=== PATIENT | female | born 1960 | race Caucasian/White ===

== ENCOUNTER 2019-05-24 09:49 | Emergency (ER) | payer OTHER ==
[~2019-05-24] VITALS: Ht 160 cm; Wt 69.4 kg
[~2019-05-24 09:49] MED LIST: COQ-10100 MG PO; DAILY MULTIPLE1 EACH PO; GINGER ROOT550 MG PO; IBUPROFEN600 MG PO; PERCOCET 7.5-31 EACH PO; VITAMIN B122500 MCG PO; VITAMIN C500 M1 PO
== END 2019-05-24 10:50 | disposition home or self-care (01) ==
LOC: ED 09:49
DX: B34.9 Viral infection, unspecified (principal)
CPT/HCPCS: 99283

== ENCOUNTER 2021-04-15 23:06 | Emergency (ER) | payer OTHER ==
[~2021-04-15] VITALS: Ht 160 cm; Wt 66.9 kg
[2021-04-15] MEDS ORDERED: FISH OIL 1,0001 EAC2 NG (23:29)
[2021-04-16] MEDS ORDERED: METRONIDAZOLE500 MG PO (02:14)
[2021-04-16] MEDS ORDERED: CIPRO500 MG PO (02:14)
[2021-04-16] MEDS ORDERED: HYDROCODON-ACE1 EA10 PO (02:14)
[2021-04-16] MEDS ORDERED: ONDANSETRON ODT8 MG PO (02:14)
== END 2021-04-16 02:32 | disposition home or self-care (01) ==
LOC: ED 23:06
DX: K57.32 Diverticulitis of large intestine without perforation or abscess without bleeding (principal); M48.56XA Collapsed vertebra, not elsewhere classified, lumbar region, initial encounter for fracture; Z91.030 Bee allergy status; Z79.899 Other long term (current) drug therapy
CPT/HCPCS: 36415; 74177; 80053; 81001; 83690; 85025; 96374; 99284-25; A9270; J2270; J7030; Q9967

== ENCOUNTER 2022-03-28 06:25 | Day surgery (SDC) | payer BC ==
[~2022-03-28] VITALS: Ht 160 cm; Wt 64.5 kg
[~2022-03-28 06:25] MED LIST changes: +CIPRO500 MG PO; +DIVIGEL1 GM TD; +FISH OIL 1,0001 EAC2 NG; +HYDROCHLOROTH12.5 MG PO; +HYDROCODON-ACE1 EA10 PO; +METRONIDAZOLE500 MG PO; +ONDANSETRON ODT8 MG PO; +VITAMIN C WITH500 MG PO; +VITAMIN D310 MC1 PO
--- NOTE | 2022-03-28 09:57 | OR ---
[facility] [address], [place] [address] Signed DATE OF OPERATION: 03/28/2022 SURGEON: Jacobo Stratton MD PREOPERATIVE DIAGNOSES: 1. Maternal great grandmother with breast cancer and possibly colon cancer. 2. Maternal grandmother had colon cancer in her 50s. 3. Mother with colon cancer at age 51 and still alive at age 85. 4. Maternal cousin with colon cancer. 5. Brother with colon polyps. 6. Internal and external hemorrhoids. 7. Diverticulosis. POSTOPERATIVE DIAGNOSES: 1. Tortuous sigmoid colon. 2. Moderate sigmoid diverticulosis. PROCEDURE: Colonoscopy without biopsy. ESTIMATED BLOOD LOSS: None. INDICATIONS: Lucy is a 62-year-old female, who asked to see me for a followup colonoscopy. She has a long family history of colon cancer and polyps as listed above. She started her colonoscopies a number of years ago. I believe this will be her 4th one. She is known to have some hemorrhoid tissue along with sigmoid diverticulosis. Early last year, she had eaten some cashews and ended up with the episode of mild diverticulitis which responded nicely to antibiotics. Currently, she has no lower GI complaints. In the office, I gave her a booklet on colonoscopy. We had reviewed the nature of that test. I had reviewed her previous records. She seems to do well with Versed and fentanyl or Versed and Demerol. She understands there is risk including, but not limited to gas bloating, crampy abdominal pain, bleeding, perforation requiring surgery, and missed diagnosis. She had expressed understanding wished to proceed. PROCEDURE NOTE: Lucy was taken into our endoscopy suite and placed in the left lateral decubitus position. She was given 4 mg of Versed and 125 mcg of fentanyl to cover the case. She often holding her breath or stops breathing but then wakes up rather quickly. I would Electronically Signed By: JACOBO STRATTON MD 03/28/22 0957 PATIENT NAME: LUCY SAINI OPERATIVE REPORT DATE OF : 60 REPORT #: [id number] PHYSICIAN: JACOBO STRATTON MD PCP: CARMENZA COLBY NP REPORT IS CONFIDENTIAL AND NOT TO BE RELEASED WITHOUT AUTHORIZATION [facility] [address], [place] [address] Signed say she is getting very close to being monitored anesthesia care. She is getting older. A digital rectal exam was performed and really this was not particularly concerning. She has good sphincter tone. No obvious external hemorrhoids. No masses. The adult colonoscope was introduced and advanced under direct visualization of camera. She does have somewhat narrow, tortuous sigmoid colon containing moderate diverticula. It took extra sedation and very careful maneuvering of the camera to get through the sigmoid colon. After that, the left colon opened up nicely and the camera went around and into the cecum. It took just a little extra sedation and some abdominal compression to get it right into the cecum itself. Her prep was quite good. We could easily see the appendiceal orifice and the ileocecal valve. The scope was then slowly withdrawn. We took pictures throughout for photodocumentation. We again came back to a very tortuous and somewhat narrowed sigmoid colon. The rectum was unremarkable. Upon retroflexion of the scope, we really did not see much in the way of any internal hemorrhoids. After this, the gas was suctioned out and the colonoscope removed. Overall, Lucy tolerated the procedure well. RECOMMENDATIONS: Lucy can return in 5 years for repeat colonoscopy due to her family history. She is getting close to needing monitored anesthesia care as she is getting older and the fact that her sigmoid colon is technically quite difficult. Jacobo Stratton MD ALB/MODL /[id number] cc: Dr. Carmenza Stratton MD Copies: JACOBO STRATTON MD ~ Electronically Signed By: JACOBO STRATTON MD 03/28/22 0957 PATIENT NAME: LUCY SAINI OPERATIVE REPORT DATE OF : 60 REPORT #: [id number] PHYSICIAN: JACOBO STRATTON MD PCP: CARMENZA COLBY NP REPORT IS CONFIDENTIAL AND NOT TO BE RELEASED WITHOUT AUTHORIZATION
== END 2022-03-28 08:35 | disposition home or self-care (01) ==
LOC: DS 06:25
PROVIDERS: ATTEND Colon & Rectal Surgery
PROC: 0DJD8ZZ Inspection of Lower Intestinal Tract, Via Natural or Artificial Opening Endoscopic (ICD-10-PCS; principal; 2022-03-28 07:30)
DX: Z12.11 Encounter for screening for malignant neoplasm of colon (principal); K57.30 Diverticulosis of large intestine without perforation or abscess without bleeding; K63.89 Other specified diseases of intestine; K64.0 First degree hemorrhoids; K64.4 Residual hemorrhoidal skin tags; Z80.0 Family history of malignant neoplasm of digestive organs; Z83.71 Family history of colonic polyps; Z91.040 Latex allergy status
CPT/HCPCS: 99153; G0500; J2250; J3010; J7121

== ENCOUNTER 2024-06-08 05:40 | Day surgery (SDC) | payer BC ==
[2024-06-01 14:42] VITALS: BP 137/77
[2024-06-08] VITALS (8 sets, daily range): BP systolic 118–138; BP diastolic 71–82
[~2024-06-08] VITALS: Ht 160 cm; Wt 66.8 kg
[~2024-06-08 05:40] MED LIST changes: -DIVIGEL1 GM TD; +DIVIGEL1 GM VAGINAL; -FISH OIL 1,0001 EAC2 NG; +FISH OIL 1,001000 MG PO; +LACTATED RINGER'S 1,000 ML IV SCH
[2024-06-08] MEDS ORDERED: LIDOCAINE 1% W/ EPI 1:200,000 30 ML SDV ONE (06:54)
[2024-06-08] MEDS ORDERED: SODIUM CHLORIDE 0.9% 40 ML IV ONE (06:54)
[2024-06-08] MEDS ORDERED: CEFAZOLIN SODIUM 2 GM/20 ML SYR IV SCH (07:00)
[2024-06-08] MEDS ORDERED: LIDOCAINE HCL 1% 5 ML SDV INJ ONE (07:00)
[2024-06-08] MEDS ORDERED: IBLOOD GLUCOSE TEST STRIP 1 EA TEST VI PRN (07:00)
[2024-06-08] MEDS ORDERED: fentaNYL citrate 100 MCG/2 ML VIAL ONE (07:14)
[2024-06-08] MEDS ORDERED: MIDAZOLAM HCL 2 MG/2 ML VIAL ONE (07:15)
[2024-06-08] MEDS ORDERED: DEXAMETHASONE SOD PHOS 4 MG/ML VIAL ONE (07:15)
[2024-06-08] MEDS ORDERED: propofoL 200 MG/20 ML VIAL ONE ×2 (07:15→09:31)
[2024-06-08] MEDS ORDERED: MORPHINE SULFATE 1 MG/ML VIAL ONE (07:15)
[2024-06-08] MEDS ORDERED: BUPIVACAINE 0.75% IN DEXTROSE 2 ML AMP ONE (07:15)
[2024-06-08] MEDS ORDERED: LIDOCAINE HCL 2% 5 ML SDV ONE (07:17)
--- NOTE | 2024-06-08 07:46 | NUR ---
PT NOT AVAILABLE FOR VISIT. PROVIDED PRAYER.
[2024-06-08] MEDS ORDERED: NALOXONE HCL 0.4 MG SYR IV PRN ×2 (09:00→10:15)
[2024-06-08] MEDS ORDERED: diphenhydrAMINE HCL 50 MG/ML VIAL IV PRN (09:00)
[2024-06-08] MEDS ORDERED: ondansetron HCL 4 MG/2 ML VIAL IV PRN (09:00)
[2024-06-08] MEDS ORDERED: HYDROmorphone HCL 1 MG/ML SYR IV PRN (09:00)
[2024-06-08] MEDS ORDERED: KETOROLAC TROMETHAMINE 15 MG/ML VIAL IV PRN (09:00)
[2024-06-08] MEDS ORDERED: estradioL 0.01% 42.5 GM TUBE ONE (09:08)
[2024-06-08] MEDS ORDERED: ondansetron HCL 4 MG TAB PO PRN (10:15)
[2024-06-08] MEDS ORDERED: HYDROCODONE/ACETA 5/325 TAB PO PRN (10:15)
[2024-06-08] MEDS ORDERED: FAMOTIDINE 20 MG TAB PO PRN (10:15)
[2024-06-08] MEDS ORDERED: FAMOTIDINE 20 MG/ 2 ML VIAL IV PRN (10:15)
[2024-06-08] MEDS ORDERED: LIDOCAINE 2% VISCOUS 6 ML SYR TOP ONE (10:15)
[2024-06-08] MEDS ORDERED: LACTATED RINGER'S 1,000 ML IV SCH (10:15)
--- NOTE | 2024-06-08 10:44 | NUR ---
[facility] WIDE AWAKE WITH NO C/O'S. 1000 THIS RN TOLD PT ABOUT RECEIVING DURAMORPH IN HER SPINAL AND HAVING TO STAY UNTIL 1900 AND GOING TO MED SURG. PT VERY UPSET AND WANTING TO KNOW WHY THIS HAPPEND. 1010 ANESTHESIA AT BEDSIDE TALKING WITH PT. 1015 ANESTHESIA LEFT PACU. PT STILL C/O HAVING TO STAY AND NOT UNDERSTANDING WHY THIS HAPPENED. 1020 ANESTHESIA AND OR CHARGE AT BEDSIDE EXPLAINING THE PROCESS. PT STILL UPSET AND NOT WANTING TO HAVE EXTRA CHARGES BECAUSE OF THIS. 1028 TO ROOM 123. BED PLUGGED IN AND REPORT GIVEN TO RN. AND DAUGHTER AT BEDSIDE. 1030 QUICK REPORT GIVEN TO MS BODY FITTER ABOUT PT'S C/O'S AND WHAT HAS BEEN DONE SO FAR.
--- NOTE | 2024-06-08 10:45 | NUR ---
PATIENT ARRIVED FROM PACU AT 1030. VSS, ROOM AIR 99%. BISWAS CATHETER IN PLACE AND DRAINING CLEAR YELLOW URINE. VAG PACKING IN PLACE, MIKE PAD IN PLACE WITH SMALL AMOUNT OF BLOODY DRAINAGE. PATIENT IS ABLE TO MOVE FEET, CANNOT MOVE LEGS OR FEEL BUTTOCKS. PATIENT DENIES ANY PAIN, IS LOOKING AT REGULAR MENU, NO NAUSEA NOTED. PATIENT IS TO HAVE PACKING REMOVED AT 1200, BISWAS REMOVED AT 1600.
--- NOTE | 2024-06-08 11:20 | NUR ---
PATIENT IS AWARE THAT CRYSTAL MCHUGH WILL COME AND TALK TO HER ABOUT HER MEDICAL BILL.
--- NOTE | 2024-06-08 11:32 | NUR ---
SECOND POST UP VITALS COMPLETE. PATIENT DENIES PAIN, IS HAVING NUMBNESS AND TINGLING IN LEGS.
--- NOTE | 2024-06-08 12:00 | NUR ---
HOURLY ROUNDING. DID INTRODUCTION WITH PATIENT, UPDATED THE BOARD. NO REQUEST FROM PATIENT AT THIS TIME
--- NOTE | 2024-06-08 12:48 | NUR ---
VAGINAL PACKING REMOVED, MIKE PAD CHANGED, 10% SATURATED. BISWAS CATHETER INTACT WITH CLEAR YELLOW URINE. PATIENT DENIES PAIN, IS REGAINING SENSATION IN LEGS AND BUTTOCKS. ONE 5/ MORCO GIVEN IN ANTICIPATION OF SPINAL WEARING OFF.
--- NOTE | 2024-06-08 13:50 | NUR ---
PATIENT ASSISTED TO SIT ON SIDE OF BED. PATIENT IMMEDIATELY VOMITED 600ML. PATIENT IMMEDIATELY FELT BETTER. PATIENT TOLERATED ACTIVITY WELL. 300ML EMPTIED FROM BISWAS CATHETER. PATIENT CONTINUES TO REPORT NO PAIN. PATIENT REPORTS FEELING HER MIKE AREA. NO OTHER NEEDS AT THIS TIME.
--- NOTE | 2024-06-08 14:53 | NUR ---
VISITED DURING SPIRITUAL CARE ROUNDS. PT SUPPORTED BY DAUGHTER TALIA IN ROOM. BOTH IN OVERALL GOOD SPIRITS, REQUESTED PRAYER. STILL CLEANER PROVIDED SUPPORTVE PRESENCE, HOSPITALITY, PRAYER, FACILITATED INTERACTION WITH THERAPY ANIMAL. PT AND DAUGHTER EXPRESSED GRATITUDE.
--- NOTE | 2024-06-08 15:11 | NUR ---
REPORT RECEIVED FROM SANJAY AGOSTO. PT SITTING IN BED READING WITH DAUGHTER IN ROOM. PT DENIES NAUSEA AND PAIN AT THIS TIME. HAS MIKE PAD WITH FISHNET UNDERWEAR IN PLACE WITH SM AMT OF SANG DRAINANGE ON MIKE PAD. BISWAS IN PLACE DRAINING CL YELLOW URINE. PT DENIES N/T ANYWHERE ON LOWER EXT AND TRUNK AT THIS TIME. APPLE JUICE GIVEN PER PT REQUEST. PT EATING PUDDING AND CRACKERS AND DRINKING JUICE, TOLERATING WELL.
--- NOTE | 2024-06-08 16:35 | NUR ---
BISWAS CATH TAKEN OUT UPON RN REQUEST. PATIENT HAD NO PAIN AT THIS TIME. PATIENT STOOD AND AMBULATED AROUND ROOM, TOLERATED ACTIVITY WELL AND IS NOW SITTING IN CHAIR. DAUGHTER IN ROOM. CALL LIGHT IN REACH. FRESH WATER GIVEN. NO FURTHER NEEDS AT THIS TIME.
--- NOTE | 2024-06-08 17:56 | NUR ---
PATIENT FELT GOOD AND WATNED TO GO FOR A WALK. STOOD PATIENT UP AND FIXED GOWN PATIENT FELT FINE THEN ALL THE SUDDEN VOMITED 1000 mL. WASHCLOTH GIVEN. PATIENT STATED SHE BELEIVS IT IS THE NORCO MAKING HER SICK. RN NOTIFIED.
--- NOTE | 2024-06-08 18:12 | NUR ---
PT UP AMBULATING IN ROOM WITH IN ROOM. DENIES PAIN AND NAUSEA AT THIS TIME. NO REQUESTS AT THIS TIME.
--- NOTE | 2024-06-08 19:40 | NUR ---
REPORT RECEIVED FROM FROM KEE RN. PATIENT RESTING IN BED, WATER REFILLED PER PATIENT REQUEST. AT BEDSIDE. PATIENT DECLINES NEEDS AT THIS TIME, CALL LIGHT IN REACH
--- NOTE | 2024-06-08 20:57 | NUR ---
PATIENT REPORTS HAVING NAUSEA AND EMESIS AND REQUESTING MEDICATION. PRN MEDICATION ADMINISTERED FOR NAUSEA AND PAIN. IV FLUIDS STARTED PER ORDER.
--- NOTE | 2024-06-08 21:00 | NUR ---
VS OBTAINED AND RECORDED, ASSESSMENT COMPLETE. PATIENT GIVEN ICE FOR PERINEUM, MEDICATIONS GIVEN BY SANJAY BURGESS. PATIENT GIVEN FRESH WATER. CPOX AT BEDSIDE, IVF INFUSING PER ORDER. PATIENT DECLINES NEEDS, CALL LIGHT IN REACH.
--- NOTE | 2024-06-08 22:12 | NUR ---
RESPONDED TO ALARMING CPOX. PATIENT HAD HAND BENT, CPOX SET AND WNL. IVF CONTINUING TO INFUSE PER ORDER. NO FURTHER NEEDS IDENTIFIED.
--- NOTE | 2024-06-08 23:06 | NUR ---
PATIENT UP TO VOID, MIKE ICE PACK GIVEN TO PATIENT. PATIENT RETURNED TO BED WITHOUT DIFFICULTY, CPOX AT BEDSIDE.
--- NOTE | 2024-06-08 23:09 | NUR ---
TC SARWAT VARGAS CRNA. INFORMED OF VOID, ORDERS RECEIVED FOR DISCHARGE.
--- NOTE | 2024-06-08 23:35 | NUR ---
DISCHARGE INSTRUCTIONS GIVEN TO PATIENT, ALL QUESTIONS ANSWERED. PATIENT VERBALIZED UNDERSTANDING. IV REMOVED, TIP INTACT. PATIENT TAKEN TO PV VIA WHEELCHAIR.
[2024-06-09] MEDS ORDERED: ondansetron HCL 4 MG/2 ML VIAL IV PRN (09:00)
--- NOTE | 2024-06-10 12:20 | PATH ---
[facility] [address], [place] [address] Signed SPECIMEN(S): A UTERUS AND CERVIX SPECIMEN SOURCE: A. UTERUS AND CERVIX CLINICAL HISTORY: Incomplete uterovaginal prolapse, cystocele/rectocele FINAL PATHOLOGIC DIAGNOSIS: Uterus, hysterectomy: - Uterus, 34 g - Cervix with no significant histopathologic change - Endometrium and serosa with no significant histopathologic change - Leiomyomata [facility] MICROSCOPIC EXAMINATION: Histologic sections of all submitted blocks are examined by light microscopy. These findings, together with the gross examination, support the pathologic diagnosis. GROSS DESCRIPTION: The specimen, labeled and designated "Graham, cervix and uterus," is received in formalin and consists of a(n) uterus with attached cervix. The uterus and cervix weigh 34 g and measure 7.2 x 3.0 x 2.2 cm. The serosa is kearney-pink, smooth and glistening. The 3.5 x 3.2 cm kearney-pink, smooth and glistening cervix contains a 0.6 x 0.2 os. The 1.9 cm from cornu to cornu and 1.6 cm in length endometrial cavity contains a 0.1 cm kearney-pink endometrium. The 1.6 cm thick myometrium is kearney-pink and trabeculated with seven intramural white whorled nodules up to 1.5 cm greatest dimension. The endocervical canal is kearney-pink with a herringbone pattern. [employer] sections are submitted. Cassette Summary: (A1) endoectocervix, anterior and posterior (A2) anterior endomyometrium with whorled nodule (A3) posterior endomyometrium with viral nodule TO (under the direct supervision of a pathologist) The Gross Description was prepared using a voice recognition system. The report was reviewed for accuracy; however, sound-alike word errors, addition and/or PATIENT NAME: CHRISTIANO GRAHAM PATHOLOGY DATE OF : 60 REPORT #: [id number] PHYSICIAN: JULISSA PARNELL PCP: MARCIE COLBY NP REPORT IS CONFIDENTIAL AND NOT TO BE RELEASED WITHOUT AUTHORIZATION [facility] [address], [place] [address] Signed deletions may occur. If there is any question about this report, please contact Client Services. ADDITIONAL NOTES: Immunohistochemical and/or in situ hybridization studies if performed in this case included appropriate positive controls that reacted as expected. This test was developed and its performance characteristics determined by [facility]. It has not been cleared or approved by the U.S. Food and Drug Administration. The FDA has determined that such clearance or approval is not necessary. This test is used for clinical purposes. It should not be regarded as investigational or for research. [facility] is certified under the Clinical Laboratory Improvement Amendments of 1988 (CLIA) as qualified to perform high complexity clinical laboratory testing. PERFORMING LABORATORY: Technical preparation was performed by [facility], [address] [place] [address] (CLIA#: [id number]). Professional interpretation was performed by [facility] - [facility], [address] [place] [id number] (CLIA#: [id number]). Diagnostician: Harry Buenrostro DO Pathologist Electronically Signed 06/10/2024 Copies: ~ PATIENT NAME: CHRISTIANO GRAHAM PATHOLOGY DATE OF : 60 REPORT #: [id number] PHYSICIAN: JULISSA PARNELL PCP: MARCIE COLBY NP REPORT IS CONFIDENTIAL AND NOT TO BE RELEASED WITHOUT AUTHORIZATION
== END 2024-06-08 23:35 | disposition home or self-care (01) ==
LOC: DS 05:40 → MS 10:26 → DS 11:00
PROVIDERS: ATTEND Obstetrics & Gynecology
PROC: 0TSD4ZZ Reposition Urethra, Percutaneous Endoscopic Approach (ICD-10-PCS; 2024-06-08)
PROC: 0UT9FZZ Resection of Uterus, Via Natural or Artificial Opening With Percutaneous Endoscopic Assistance (ICD-10-PCS; principal; 2024-06-08 07:30)
PROC: 0JQC0ZZ Repair Pelvic Region Subcutaneous Tissue and Fascia, Open Approach (ICD-10-PCS; 2024-06-08 07:30)
PROC: 0JQC0ZZ Repair Pelvic Region Subcutaneous Tissue and Fascia, Open Approach (ICD-10-PCS; 2024-06-08 07:30)
DX: N81.2 Incomplete uterovaginal prolapse (principal); D25.9 Leiomyoma of uterus, unspecified; N39.3 Stress incontinence (female) (male); N36.41 Hypermobility of urethra; Z91.040 Latex allergy status; Z90.49 Acquired absence of other specified parts of digestive tract
CPT/HCPCS: 00860; 96360; 96361; C1771; J0690; J1100; J1885; J2003; J2250; J2274; J2405; J2704; J3010; J3490; J7121